=== PATIENT | female | born 1985 | race Caucasian/White ===

== ENCOUNTER 2018-02-05 05:41 | Outpatient (CLI) | payer OTHER ==
[~2018-02-05] VITALS: Ht 162.6 cm; Wt 67.1 kg
[~2018-02-05 05:41] MED LIST: DCS100C PO; FOLI0.8T PO; IBP800T PO; LAMO200T50 PO; OXYC1TAB12 PO; PREN1TAB19 PO
== END 2018-02-05 13:23 ==
LOC: PREOP 05:41
PROVIDERS: ATTEND Obstetrics & Gynecology
DX: Z01.818 Encounter for other preprocedural examination (principal); N80.6 Endometriosis in cutaneous scar; D64.9 Anemia, unspecified

== ENCOUNTER 2018-02-14 10:31 | Day surgery (SDC) | payer BC, OTHER ==
[~2018-02-14] VITALS: Ht 162.6 cm; Wt 67.1 kg
[2018-02-14] VITALS (7 sets, daily range): BP systolic 102–124; BP diastolic 71–88
--- OUTSIDE RECORDS SUMMARY | 2018-02-14 10:57 | XMS REPORT ---
Author Author Carin Ca [facility] Address [address] [place], [place] [id number] Care Team Providers Care Testing Manager Name Role Phone Carin Ca PCP Unavailable Allergies and Adverse Reactions Name Reaction Notes NO KNOWN DRUG ALLERGIES Plan of Treatment Not available. Medications Active Name Start Date Estimated Completion Date SIG Comments Lamictal oral folic acid oral Problem List Description Status Onset Seizure disorder Active Vital Signs Date Time BP-Sys(mm[Hg] BP-Melanie(mm[Hg]) HR(bpm) RR(rpm) Temp WT HT HC BMI BSA BMI Percentile O2 Sat(%) 08/16/2015 1:53:00 PM 124 mmHg 62 mmHg 78 bpm 18 rpm 97.5 F 129 lbs 65 in 21.47 kg/m2 1.64 m2 98 % Social History Name Description Comments denies alcohol use Tobacco Never smoker History of Procedures Date Ordered Description Order Status 08/16/2015 12:00 AM X-RAY EXAM OF WRIST Returned Results Summary Not available. History Of Immunizations Not available. History of Past Illness Name Date of Onset Comments Seizure disorder Left wrist pain Aug 16 2015 1:54PM Payers Insurance Name Company Name Plan Name Plan Number Policy Number Policy Group Number Start Date [facility] [id number] N/A History of Encounters Visit Date Visit Type Provider 08/16/2015 Office visit Carin Ca HOSPICE ART THERAPIST
--- OUTSIDE RECORDS SUMMARY | 2018-02-14 10:58 | XMS REPORT ---
Author Author Carin Ca Organization [facility] Address [address] [place], [place] [id number] Care Team Providers Care Ham Stringer Name Role Phone Carin Ca PCP Unavailable Allergies and Adverse Reactions Name Reaction Notes NO KNOWN DRUG ALLERGIES Plan of Treatment Not available. Medications Active Name Start Date Estimated Completion Date SIG Comments Lamictal oral Zithromax Z-Antolin 250 mg oral tablet 12/14/2016 12/19/2016 take 2 tablets (500 mg ) by oral route once daily for 1 day then 1 tablet (250 mg) by oral route once daily for 4 days promethazine-codeine 6.25-10 mg/5 mL oral syrup 12/14/2016 take 5 milliliters by oral route every 4-6 hours as needed, not to exceed 30 mL in 24 hours Discontinued Name Start Date Discontinued Date SIG Comments folic acid oral 12/14/2016 Problem List Description Status Onset Seizure disorder Active Vital Signs Date Time BP-Sys(mm[Hg] BP-Melanie(mm[Hg]) HR(bpm) RR(rpm) Temp WT HT HC BMI BSA BMI Percentile O2 Sat(%) 12/14/2016 9:24:00 AM 124 mmHg 66 mmHg 98 bpm 18 rpm 98.4 F 122 lbs 65 in 20.30 kg/m2 1.59 m2 97 % 08/16/2015 1:53:00 PM 124 mmHg 62 mmHg 78 bpm 18 rpm 97.5 F 129 lbs 65 in 21.4665 kg/m 1.6381 m 98 % Social History Name Description Comments denies alcohol use Tobacco Never smoker 12/14/2016 - History of Procedures Date Ordered Description Order Status 08/16/2015 12:00 AM X-RAY EXAM OF WRIST Reviewed Results Summary Not available. History Of Immunizations Not available. History of Past Illness Name Date of Onset Comments Seizure disorder Left wrist pain Aug 16 2015 1:54PM Acute upper respiratory infection Dec 14 2016 9:27AM Payers Insurance Name Company Name Plan Name Plan Number Policy Number Policy Group Number Start Date [employer] [facility] [employer] [id number] N/A [facility] [id number] N/A History of Encounters Visit Date Visit Type Provider 12/14/2016 Office visit Carin Ca APRN 08/16/2015 Office visit Carin Ca LEGAL RESEARCH ANALYST
--- OUTSIDE RECORDS SUMMARY | 2018-02-14 10:58 | XMS REPORT | Continuity of Care Document ---
Author Author [facility] Organization [facility] Address Unknown Phone Unavailable Allergies Active Description Code Type Severity Reaction Onset Reported/Identified Relationship to Patient Clinical Status Yes No Known Drug Allergies [id number] Drug Allergy Unknown N/A 02/05/2018 Medications There is no data. Problems Date Dx Coded Attending Type Code Diagnosis Diagnosed By 05/01/2010 Ot 634.91 05/06/2015 PAUL PELLETIER MD Ot 345.90 EPILEPSY UNSPEC W/O MENTION INTRACTABLE 05/06/2015 PAUL PELLETIER MD, Ot 642.41 MILD/NOS PREECLAMP-DELIV 05/06/2015 PAUL PELLETIER MD Ot 649.41 EPILEPSY COMP PREG/CHILDBIRTH/PUERPERIUM 05/06/2015 PAUL PELLETIER MD Ot 652.31 TRANSVER/OBLIQ LIE-DELIV 05/06/2015 PAUL PELLETIER MD Ot 654.21 PREV DELIVRY W/ OR W/O MENT ANT 05/06/2015 PAUL PELLETIER MD Ot V06.1 [id number], COMBINED [ 05/06/2015 PAUL PELLETIER MD, Ot V27.0 DELIVER-SINGLE LIVEBORN 02/05/2018 PAUL PELLETIER MD, Ot D64.9 ANEMIA, UNSPECIFIED 02/05/2018 PAUL PELLETIER MD Ot N80.6 ENDOMETRIOSIS IN CUTANEOUS SCAR 02/05/2018 PAUL PELLETIER MD, Ot Z01.818 ENCOUNTER FOR OTHER PREPROCEDURAL EXAMIN Procedures Code Description Performed By Performed On 74.1 LOW CERVICAL 05/04/2015 Results There is no data. Encounters ACCT No. Visit Date/Time Discharge Status Pt. Type Provider Facility Loc./Unit Complaint [id number] 02/05/2018 05:41:00 02/05/2018 13:23:00 DIS Outpatient PAUL PELLETIER MD [facility] PREOP INCISIONAL MASS [id number] 05/04/2015 11:00:00 05/06/2015 18:30:00 DIS Inpatient PAUL PELLETIER MD [facility] LDRP [id number] 02/14/2018 13:00:00 ACT Preadmit PAUL PELLETIER MD [facility] SDC INCISIONAL MASS [id number] 05/04/2015 09:45:00 Document Registration [id number] 08/22/2017 09:05:03 08/22/2017 23:59:59 CLS Outpatient Sherlyn Castro [id number] 12/14/2016 10:18:01 12/14/2016 23:59:59 CLS Outpatient Carin Ca [id number] 08/16/2015 14:45:27 08/16/2015 23:59:59 CLS Outpatient Carin Ca
--- OUTSIDE RECORDS SUMMARY | 2018-02-14 10:58 | XMS REPORT ---
Author Author Vivian Castro Organization [facility] Address [address] [place], [place] [id number] Care Team Providers Care Zipper Repairer Name Role Phone Vivian Castro PCP [phone] Vivian Castro PreferredProvider [phone] Allergies and Adverse Reactions Name Reaction Notes NO KNOWN DRUG ALLERGIES Plan of Treatment Not available. Medications Active Name Start Date Estimated Completion Date SIG Comments Valtrex 1 gram oral tablet 08/22/2017 take 1 tablet (1,000 mg) by oral route once daily for 30 days lidocaine 5 % topical cream 08/22/2017 MIX 1/2 WITH 1/2 CORTISONE 10 AND APPLY TO BLISTERED AREA 3XD TIL CLEAR Name Start Date Expiration Date SIG Comments Zithromax Z-Antolin 250 mg oral tablet 12/14/2016 12/19/2016 take 2 tablets (500 mg ) by oral route once daily for 1 day then 1 tablet (250 mg) by oral route once daily for 4 days Discontinued Name Start Date Discontinued Date SIG Comments Lamictal oral 08/22/2017 pt said not taking them for a long time folic acid oral 12/14/2016 promethazine-codeine 6.25-10 mg/5 mL oral syrup 12/14/2016 08/22/2017 take 5 milliliters by oral route every 4-6 hours as needed, not to exceed 30 mL in 24 hours Problem List Description Status Onset Seizure Disorder Active Vital Signs Date Time BP-Sys(mm[Hg] BP-Melanie(mm[Hg]) HR(bpm) RR(rpm) Temp WT HT HC BMI BSA BMI Percentile O2 Sat(%) 08/22/2017 8:11:00 AM 120 mmHg 70 mmHg 70 bpm 18 rpm 97 F 124.25 lbs 65 in 20.68 kg/m2 1.61 m2 100 % 12/14/2016 9:24:00 AM 124 mmHg 66 mmHg 98 bpm 18 rpm 98.4 F 122 lbs 65 in 20.3017 kg/m 1.5931 m 97 % 08/16/2015 1:53:00 PM 124 mmHg [...] Illness Name Date of Onset Comments Seizure Disorder Left wrist pain Aug 16 2015 1:54PM Acute upper respiratory infection Dec 14 2016 9:27AM Herpes zoster with other complication Aug 22 2017 8:14AM Payers Insurance Name Company Name Plan Name Plan Number Policy Number Policy Group Number Start Date [facility] [id number] N/A [facility] [id number] N/A History of Encounters Visit Date Visit Type Provider 08/22/2017 Office visit Vivian Castro APRN 12/14/2016 Office visit Carin Ca APRN 08/16/2015 Office visit Carin Ca APRN
[2018-02-14] MEDS ORDERED: ceFAZolin 1 GM/NS 100 ML IVPB IV ONE ×2 (11:00)
[2018-02-14] MEDS ORDERED: BUP/EPI 0.5% 1:200,000 (SENSORCAINE) 30 ML VIAL ONE (11:03)
[2018-02-14 11:22] LABS: BASOPHILS % (AUTO) 1 % (0-10); EOSINOPHILS # (AUTO) 0.1 10^3/uL (0.0-0.3); EOSINOPHILS % (AUTO) 2 % (0-10); HEMATOCRIT 40 % (35-52); HEMOGLOBIN 14.2 G/DL (11.5-16.0); LYMPHOCYTES # (AUTO) 1.5 X 10^3 (1.0-4.0); LYMPHOCYTES % (AUTO) 33 % (12-44); MEAN CORPUSCULAR HEMOGLOBIN 31 PG (25-34); MEAN CORPUSCULAR HGB CONC 36 G/DL (32-36); MEAN CORPUSCULAR VOLUME 87 FL (80-99); MEAN PLATELET VOLUME 9.7 FL (7.4-10.4); MONOCYTES # (AUTO) 0.4 X 10^3 (0.0-1.0); MONOCYTES % (AUTO) 9 % (0-12); NEUTROPHILS # (AUTO) 2.5 X 10^3 (1.8-7.8); NEUTROPHILS % (AUTO) 56 % (42-75); PLATELET COUNT 344 10^3/uL (130-400); RED BLOOD COUNT 4.59 10^6/uL (4.35-5.85); RED CELL DISTRIBUTION WIDTH 12.4 % (10.0-14.5); WHITE BLOOD COUNT 4.5 10^3/uL (4.3-11.0)
[2018-02-14] MEDS ORDERED: LACTATED RINGERS 1,000 ML IV PRN (11:23)
[2018-02-14] MEDS ORDERED: NEOSTIGMINE 1 MG/ML 5 ML SYRINGE ONE (11:28)
[2018-02-14] MEDS ORDERED: proPOfol 200 MG/20 ML (DIPRIVAN) VIAL IV ONE (11:28)
[2018-02-14] MEDS ORDERED: LIDOCAINE PF 2% 5 ML (XYLOCAINE) VIAL ONE (11:28)
[2018-02-14] MEDS ORDERED: MIDAZOLAM 2 MG/2 ML (VERSED) VIAL ONE (11:28)
[2018-02-14] MEDS ORDERED: ONDANSETRON 4 MG/2 ML (SDV) Z0FRAN ONE (11:28)
[2018-02-14] MEDS ORDERED: SEVOFLURANE (ULTANE) 15 ML INHAL SOLN ONE ×3 (11:28→11:41)
[2018-02-14] MEDS ORDERED: GLYCOPYRROLATE 0.2 MG/ML (ROBINUL) 2 ML VIAL ONE (11:28)
[2018-02-14] MEDS ORDERED: DEXAMETHASONE 10 MG/ML (DECADRON) 1 ML VIAL ONE (11:28)
[2018-02-14] MEDS ORDERED: ROCURONIUM 10 MG/ML 5 ML SYRINGE IV ONE (11:28)
[2018-02-14] MEDS ORDERED: fentaNYL INJECTION 100 MCG/2 ML AMP ONE ×2 (11:29→13:34)
[2018-02-14] MEDS ORDERED: ceFAZolin INJECTION 1,000 MG in NS (IVPB) 100 ML IV ONE (11:30)
--- NOTE | 2018-02-14 13:15 | Progress Note-Pre Operative ---
Pre-Operative Progress Note H&P Reviewed The H&P was reviewed, patient examined and no changes noted. Date Seen by Provider: Feb 14, 2018 Time Seen by Provider: 13:15 Date H&P Reviewed: Feb 14, 2018 Time H&P Reviewed: 13:15 Pre-Operative Diagnosis: Abdominal wall mass right lower quadrant PAUL PELLETIER MD Feb 14, 2018 1:15 pm
--- NOTE | 2018-02-14 13:16 | Progress Note-Post Operative ---
Post-Operative Progess Note Surgeon (s)/Cma (s) Surgeon PAUL PELLETIER MD Cma: Alma Fermin Pre-Operative Diagnosis Abdominal wall mass right lower quadrant Post-Operative Diagnosis Same with pathology pending Procedure & Operative Findings Date of Procedure 02/14/18 Procedure Performed/Findings Exploratory laparotomy with mass excision Anesthesia Type GETA Estimated Blood Loss Estimated blood loss (mL): 50cc Specimens/Packing Specimens Removed Abdominal wall mass Packing: None PAUL PELLETIER MD Feb 14, 2018 13:16
[2018-02-14] MEDS ORDERED: OXYC-465 PO (13:20)
--- NOTE | 2018-02-14 13:22 | Discharge Instructions ---
Discharge Instructions Discharge Medications New, Converted or Re-Newed RX: RX on Chart Patient Instructions Patient Instructions: As directed Return to The Hospital For: As directed Activity & Diet Discharge Diet: No Restrictions Activity as Tolerated: Yes Orders-Post D/C & Referrals Follow Up Appt: Return to clinic with me on SaturdayFebruary 17, 2018 at 930 a.m. for staple removal Activity: Rest for 24 hours, than as tolerated. Diet: As tolerated-Clear Liquids only if nauseated. Tomorrow, may shower or tub bathe as desired. Patient to return to the clinic as soon as possible for: Temperature greater than 101F, Severe Pain, Foul discharge from incision or vagina, Excessive Bleeding (more than a period). PAUL PELLETIER MD Feb 14, 2018 1:22 pm
[2018-02-14] MEDS: MEPERIDINE (DEMEROL) INJ 50 MG/ML IVP PRN ×2 (14:11→14:26)
--- NOTE | 2018-02-14 14:12 | Anesthesia-General Post-Op ---
General Patient Condition Mental Status/LOC: Same as Preop Cardiovascular: Satisfactory Nausea/Vomiting: Absent Respiratory: Satisfactory Pain: Controlled Complications: Absent Post Op Complications Complications None Follow Up Care/Instructions Patient Instructions None needed. Anesthesia/Patient Condition Patient Condition Patient is doing well, no complaints, stable vital signs, no apparent adverse anesthesia problems. No complications reported per nursing. CAROL ANN RODARTE CRNA Feb 14, 2018 14:11
[2018-02-14] MEDS ORDERED: ONDANSETRON 4 MG/2 ML (SDV) Z0FRAN IVP PRN (14:15)
[2018-02-14] MEDS ORDERED: HYDROmorphone (DILAUDID) 2 MG/ML VIAL IVP PRN (14:15)
[2018-02-14] MEDS: morphine INJ 10 MG/ML 1ML (SYR OR VIAL) IVP PRN ×2 (14:27→14:31)
[2018-02-14] MEDS ORDERED: oxyCODONE/APAP 10/325MG (PERCOCET 10) TABLET PO ONE ×2 (17:40→17:45)
--- NOTE | 2018-02-14 19:07 | OPERATIVE REPORT ---
DATE OF SERVICE: 02/14/2018 PREOPERATIVE DIAGNOSIS: Right lower quadrant abdominal wall mass. POSTOPERATIVE DIAGNOSIS: Right lower quadrant abdominal wall mass with pathology pending. OPERATIVE PROCEDURE: Exploratory laparotomy with excision of right abdominal wall mass. OPERATIVE DESCRIPTION: With the patient in the supine position under satisfactory general anesthesia, she was prepped and draped in the usual fashion for abdominal surgery. The patient has previous Pfannenstiel incisions from her deliveries. Just distal and cephalad to the right margin of the scar, was a nodular mass of approximately 2 x 3 cm that was palpable under the skin. This was somewhat fixed in place. The skin was incised along the Pfannenstiel incision in the right lateral third of the incision and then a careful meticulous dissection was carried under the skin to free it from the skin from the underlying adipose tissue and the nodular mass that was just superior to the entry point and just slightly lateral to the entry point through the skin. Careful dissection was carried complete around this nodular mass after dissecting it free superiorly and inferiorly and elevating it with an Allis clamp. Dissection carried under the mass down on to the fascia, opened the fascia and after palpate internally to see that there was no extension of this mass into the abdominal cavity. The mass was fully resected and then the deep tissue was closed with interrupted sutures of 2-0 Vicryl. This reapproximated the fascia at the entry point as well. Good support and good reapproximation was achieved at that area and then the subcutaneous tissue was reapproximated with interrupted sutures of 3-0 Vicryl Rapide and then the skin was stapled. A portion of the scar was resected back to clean new viable tissue. The specimen was sent to pathology for permanent section. The patient was now uneventfully awakened from her general anesthesia and transferred to recovery room in stable condition with plans for discharge home PAR. Blood loss for the procedure was around 50 mL. The patient tolerated the procedure well. Sponge and needle counts were correct. Job ID: [id number] DocumentID: [id number] Dictated Date: 02/14/2018 13:51:52 Motorsports Technician Date: 02/14/2018 19:07:13 Dictated By: PAUL PELLETIER MD MTDD
== END 2018-02-14 15:05 | disposition home or self-care (01) ==
LOC: SDC 10:31 → EDSTATUS 13:00 → SDC 15:05
PROVIDERS: ATTEND Obstetrics & Gynecology
DX: D17.1 Benign lipomatous neoplasm of skin and subcutaneous tissue of trunk (principal); E16.2 Hypoglycemia, unspecified
CPT/HCPCS: 36415; 82962; 84703; 85025; 87081; 88304

== ENCOUNTER → 2018-06-30 | Outpatient (CLI) | payer BC ==
[~2018-06-30] MED LIST changes: +CATHETER FLUSH 10 ML SYR IV PRN; +IOHEXOL 350 MG/ML 100 ML (OMNIPAQUE 350) VIAL IV ONE; +NS 250 ML (IVPB) BAG IV ONE; +OXYC-465 PO
--- NOTE | 2018-06-30 15:23 | Diagnostic Imaging Report ---
PROCEDURE: CT abdomen and pelvis with contrast. TECHNIQUE: Multiple contiguous axial images were obtained through the abdomen and pelvis after administration of intravenous contrast. INDICATION: Increasing sharp pain at the patient's incision site. Patient had prior surgery in January 2018. COMPARISON: No prior studies are available for comparison. FINDINGS: The lung bases are clear. There is a hyperdense mass in the right lobe of the liver medially measuring 4.6 cm in AP by 3.5 cm transverse. This is isodense to the liver on the delayed images. This does contain a central low density which could represent a central scar. No other liver lesions are seen. There is some generalized low density throughout the liver suggestive of hepatic steatosis. The pancreas and spleen are unremarkable. No adrenal mass is detected. The kidneys are unremarkable. Aorta is nonaneurysmal. The small and large bowel loops are normal caliber. No obstruction is seen. There is no ascites. The uterus and bladder are unremarkable. There is some mild inflammatory stranding in the lower abdominal wall in the right paramidline and right lower quadrant region, likely from prior surgery. No fluid collection is identified. No abdominal wall hernia is seen. The bony structures are not acute. IMPRESSION: 1. Hepatic steatosis. 2. Right lobe liver mass, as described. While this could represent a hemangioma, other etiologies such as focal nodular hyperplasia or adenoma cannot be entirely excluded. MRI of the abdomen utilizing liver protocol is recommended for characterization. 3. Postsurgical changes in the abdominal wall. No fluid collection or abdominal wall hernia is detected. Dictated by: Dictated on workstation # [id number]
== END ==
LOC: RAD 14:44
PROVIDERS: ATTEND Obstetrics & Gynecology
DX: G89.18 Other acute postprocedural pain (principal); K76.0 Fatty (change of) liver, not elsewhere classified; Z98.890 Other specified postprocedural states
CPT/HCPCS: 74177

== ENCOUNTER 2018-08-07 05:38 | Outpatient (CLI) | payer BC ==
[~2018-08-07] VITALS: Ht 162.6 cm; Wt 58.1 kg
[~2018-08-07 05:38] MED LIST changes: -CATHETER FLUSH 10 ML SYR IV PRN; -IOHEXOL 350 MG/ML 100 ML (OMNIPAQUE 350) VIAL IV ONE; -NS 250 ML (IVPB) BAG IV ONE
[2018-08-07] MEDS ORDERED: BCP PO (13:40)
[2018-08-15] MEDS ORDERED: OXYC1TAB87 PO (12:21)
[2018-08-15] MEDS ORDERED: IBUP-1780 PO (12:21)
== END 2018-08-07 14:03 | disposition home or self-care (01) ==
LOC: PREOP 05:38
PROVIDERS: ATTEND Obstetrics & Gynecology
DX: Z01.818 Encounter for other preprocedural examination (principal)

== ENCOUNTER 2018-08-15 10:23 | Day surgery (SDC) | payer BC ==
[~2018-08-15] VITALS: Ht 162.6 cm; Wt 54.1 kg
[~2018-08-15 10:23] MED LIST changes: +BCP PO
[2018-08-15 10:54] VITALS: BP 134/87
[2018-08-15] MEDS ORDERED: ceFAZolin INJECTION 1,000 MG in NS (IVPB) 50 ML IV ONE (11:00)
[2018-08-15 11:02] LABS: BASOPHILS % (AUTO) 0 % (0-10); EOSINOPHILS # (AUTO) 0.1 10^3/uL (0.0-0.3); EOSINOPHILS % (AUTO) 1 % (0-10); HEMATOCRIT 44 % (35-52); HEMOGLOBIN 15.4 G/DL (11.5-16.0); LYMPHOCYTES # (AUTO) 1.5 X 10^3 (1.0-4.0); LYMPHOCYTES % (AUTO) 28 % (12-44); MEAN CORPUSCULAR HEMOGLOBIN 31 PG (25-34); MEAN CORPUSCULAR HGB CONC 35 G/DL (32-36); MEAN CORPUSCULAR VOLUME 89 FL (80-99); MEAN PLATELET VOLUME 9.8 FL (7.4-10.4); MONOCYTES # (AUTO) 0.3 X 10^3 (0.0-1.0); MONOCYTES % (AUTO) 6 % (0-12); NEUTROPHILS # (AUTO) 3.4 X 10^3 (1.8-7.8); NEUTROPHILS % (AUTO) 65 % (42-75); PLATELET COUNT 316 10^3/uL (130-400); RED CELL DISTRIBUTION WIDTH 12.4 % (10.0-14.5); WHITE BLOOD COUNT 5.3 10^3/uL (4.3-11.0)
[2018-08-15] MEDS ORDERED: proPOfol 200 MG/20 ML (DIPRIVAN) VIAL IV ONE (11:05)
[2018-08-15] MEDS ORDERED: DEXAMETHASONE 10 MG/ML (DECADRON) 1 ML VIAL ONE (11:05)
[2018-08-15] MEDS ORDERED: ONDANSETRON 4 MG/2 ML (SDV) Z0FRAN ONE (11:05)
[2018-08-15] MEDS ORDERED: LIDOCAINE PF 2% 2 ML (XYLOCAINE) VIAL ONE (11:05)
[2018-08-15] MEDS ORDERED: fentaNYL INJECTION 100 MCG/2 ML AMP ONE (11:05)
[2018-08-15] MEDS ORDERED: MIDAZOLAM 2 MG/2 ML (VERSED) VIAL ONE (11:05)
[2018-08-15] MEDS ORDERED: ROCURONIUM 10 MG/ML 5 ML SYRINGE IV ONE (11:05)
[2018-08-15] MEDS ORDERED: SEVOFLURANE (ULTANE) 15 ML INHAL SOLN ONE ×3 (11:10→13:11)
[2018-08-15] MEDS ORDERED: LACTATED RINGERS 1,000 ML IV PRN (11:32)
[2018-08-15] MEDS ORDERED: CATHETER FLUSH 10 ML SYR IV PRN (11:45)
[2018-08-15] MEDS ORDERED: LAMO25TA5 PO (11:48)
[2018-08-15] MEDS ORDERED: NF-LAMO200 PO (12:07)
--- NOTE | 2018-08-15 12:16 | Progress Note-Pre Operative ---
Pre-Operative Progress Note H&P Reviewed The H&P was reviewed, patient examined and no changes noted. Date Seen by Provider: Aug 15, 2018 Time Seen by Provider: 12:15 Date H&P Reviewed: Aug 15, 2018 Time H&P Reviewed: 12:15 Pre-Operative Diagnosis: Abdominal wall mass/abdominal wall. History of abdominal wall endometriosi PAUL PELLETIER MD Aug 15, 2018 12:16 pm
[2018-08-15] MEDS ORDERED: D5 LR IV SOLUTION 1,000 ML IV SCH (12:17)
--- NOTE | 2018-08-15 12:17 | Progress Note-Post Operative ---
Post-Operative Progess Note Surgeon (s)/Elementary Reading Specialist (s) Surgeon PAUL PELLETIER MD Elementary Reading Specialist: Vivi Weston Pre-Operative Diagnosis Abdominal wall mass/abdominal wall. History of abdominal wall endometriosi Post-Operative Diagnosis Same with pathology pending Procedure & Operative Findings Date of Procedure 08/15/18 Procedure Performed/Findings Exploratory Laparotomy with abdominal wall mass excision Anesthesia Type GETA Estimated Blood Loss Estimated blood loss (mL): 100 cc Specimens/Packing Specimens Removed Abdominal wall soft tissue mass Packing: None PAUL PELLETIER MD Aug 15, 2018 12:17
[2018-08-15] MEDS ORDERED: OXYC1TAB87 PO (12:21)
[2018-08-15] MEDS ORDERED: IBUP-1780 PO (12:21)
--- NOTE | 2018-08-15 12:23 | Discharge Instructions ---
Discharge Instructions Discharge Medications New, Converted or Re-Newed RX: RX on Chart Patient Instructions Patient Instructions: As directed Return to The Hospital For: DIRECTED Activity & Diet Discharge Diet: No Restrictions Activity as Tolerated: Yes Orders-Post D/C & Referrals Follow Up Appt: Return to clinic on Saturday August 18, 2018 at 930 a.m. for staple removal Call to make follow up appt. for patient in 4 weeks. Activity: Rest for 24 hours, than as tolerated. Wound Care: May remove Band-Aid tomorrow. Replace as desired. Keep incisions clean and dry. Wash daily with soap and water. Please call in RX to patient pharmacy. Diet: As tolerated-Clear Liquids only if nauseated. may shower or tub bathe as desired. Patient to return to the clinic as soon as possible for: Temperature greater than 101F, Severe Pain, Foul discharge from incision or vagina, Excessive Bleeding (more than a period). PAUL PELLETIER MD Aug 15, 2018 12:23 pm
[2018-08-15] MEDS ORDERED: ROPIVACAINE 5MG/ML 30ML VIAL ONE (12:25)
[2018-08-15] MEDS ORDERED: PROMETHAZINE INJ 25 MG/ML (PHENERGAN) AMP IM ONE (12:30)
[2018-08-15] MEDS ORDERED: KETOROLAC 30 MG/ML VIAL IVP ONE (12:30)
[2018-08-15] MEDS ORDERED: MEPERIDINE (DEMEROL) INJ 100 MG/ML IM ONE (12:30)
[2018-08-15] MEDS ORDERED: ONDANSETRON 4 MG/2 ML (SDV) Z0FRAN IVP PRN ×2 (12:30→13:45)
[2018-08-15] MEDS ORDERED: oxyCODONE/APAP 5/325MG (PERCOCET 5) TABLET PO PRN (12:30)
[2018-08-15] MEDS ORDERED: NEOSTIGMINE 1 MG/ML 5 ML SYRINGE ONE (12:50)
[2018-08-15] MEDS ORDERED: GLYCOPYRROLATE 0.2 MG/ML (ROBINUL) 2 ML VIAL ONE (12:50)
[2018-08-15] MEDS ORDERED: MEPERIDINE (DEMEROL) INJ 50 MG/ML ONE (13:33)
[2018-08-15] MEDS ORDERED: fentaNYL INJECTION 100 MCG/2 ML AMP IVP ONE (13:45)
[2018-08-15] MEDS ORDERED: HYDROmorphone 2 MG/ML VIAL (DILAUDID) ONE (13:45)
[2018-08-15] MEDS ORDERED: MEPERIDINE (DEMEROL) INJ 50 MG/ML IVP ONE (13:45)
[2018-08-15] MEDS ORDERED: KETOROLAC 30 MG/ML VIAL ONE (13:45)
[2018-08-15] MEDS ORDERED: HYDROmorphone 2 MG/ML VIAL (DILAUDID) IV ONE (13:45)
--- NOTE | 2018-08-15 14:07 | Anesthesia-General Post-Op ---
General Patient Condition Mental Status/LOC: Same as Preop Cardiovascular: Satisfactory Nausea/Vomiting: Absent Respiratory: Satisfactory Pain: Controlled Complications: Absent Post Op Complications Complications None Follow Up Care/Instructions Patient Instructions None needed. Anesthesia/Patient Condition Patient Condition Patient is doing well, no complaints, stable vital signs, no apparent adverse anesthesia problems. No complications reported per nursing. KALEE HAAS CRNA Aug 15, 2018 14:07
[2018-08-15 14:35] VITALS: BP 123/84
[2018-08-15 14:40] VITALS: BP 123/84
[2018-08-15] MEDS ORDERED: HYDROcodone/APAP 5 MG/325 MG (LORTAB) TAB ONE (14:49)
[2018-08-15] MEDS ORDERED: oxyCODONE/APAP 5/325MG (PERCOCET 5) TABLET ONE (14:52)
[2018-08-15 15:05] VITALS: BP 122/82
[2018-08-15 15:35] VITALS: BP 113/79
--- NOTE | 2018-08-15 20:08 | OPERATIVE REPORT ---
DATE OF SERVICE: 08/15/2018 PREOPERATIVE DIAGNOSES: Abdominal wall mass and abdominal wall pain. POSTOPERATIVE DIAGNOSES: Abdominal wall mass and abdominal wall pain with likely abdominal wall endometrioma and pathology pending. OPERATIVE PROCEDURE: Exploratory laparotomy with resection of abdominal wall mass. OPERATIVE DESCRIPTION: With the patient in supine position under satisfactory general anesthesia, she was positioned supine, prepped and draped in the usual fashion for abdominal surgery. There was a nodular mass approximately 2 cm vertically and 6 cm horizontally under the right margin of her Pfannenstiel incision and extending past the skin portion of that Pfannenstiel incision. A repeat incision was made along the lateral third of the Pfannenstiel incision removing the scar itself and a small strip of skin and then dissection was carried under the skin around this nodular mass and down to the fascia. It was found that the mass involved the fascia with the dissection carried down to the fascia. The fascia was opened and resected to allow for complete removal of the mass that was densely involved in the rectus fascia. An elliptical portion of the rectus fascia was taken out, extending about 6 to 7 cm laterally. With the mass removed, the fascia was closed with a running locked suture of 2-0 Vicryl. Reapproximation was complete. There was no remaining nodular tissue in the area. The nodular tissue was opened after removing from the patient and it was clear that there was endometriosis and that as evidenced by the chocolate cyst structures inside. The subcutaneous tissue was reapproximated with interrupted sutures of 2-0 and 3-0 Vicryl. The skin was then stapled. A couple of the sutures distorted the skin sufficiently to warrant releasing those two sutures, which was done and then the skin relatively nicely flat. There was some defect because of the removal of the bulk of the tissue in this relatively thin patient. The operative procedure at this point was complete. Sterile dressing was applied. Sponge and needle counts were correct. Estimated blood loss was around 100 mL. The patient tolerated the procedure well and was uneventfully awakened from general anesthesia and transferred to the recovery room in stable condition with plans for discharge home PAR. Job ID: [id number] DocumentID: [id number] Dictated Date: 08/15/2018 13:19:03 Expansion Joint Builder Date: 08/15/2018 20:07:21 Dictated By: PAUL PELLETIER MD [facility]
== END 2018-08-15 16:30 | disposition home or self-care (01) ==
LOC: SDC 10:23
PROVIDERS: ATTEND Obstetrics & Gynecology
DX: N80.8 Other endometriosis (principal); Z11.2 Encounter for screening for other bacterial diseases; G40.909 Epilepsy, unspecified, not intractable, without status epilepticus; Z79.899 Other long term (current) drug therapy
CPT/HCPCS: 36415; 84703; 85025; 87081